=== PATIENT | female | born 1960 | race Caucasian/White ===

== ENCOUNTER 2017-06-17 08:46 | Day surgery (SDC) | payer OTHER ==
[~2017-06-17] VITALS: Ht 154.9 cm; Wt 86.2 kg
[~2017-06-17 08:46] MED LIST: ALBU90OI6 INH; AMOCLA875 PO; ASCO500 PO; ASPI325EC PO; ASPI81EC PO; ATOR40TA PO; BENAML20/5 PO; CALCAVITD PO; COMBIVENT RESPIM4 GM; CYAN500 PO; CYCL10 PO; DICL25ER PO; ELMIRON; FAMO40 PO; FLAX PO; GLUCOSAMINE &1 EACH PO; HYDACE5 PO; HYDACE7.5L PO; HYDHCL25 PO; LEVSOD150 PO; LEVSOD75; LEVSOD75 PO; METF500 PO; METF500C; METPRE4DP PO; MORP30 PO; MULVITMIND PO; NAPR500 PO; NITR.6SL SL; OMEG1CAP30 PO; OMEP20ER PO; PANT40 PO; PARO10 PO; PARO20 PO; SELENIUM200 MC1 PO; SUDAFED PO; TRAM50 PO; VITAMIN D-32000 UNIT PO; XARELTO10 MG PO; ZOLP5 PO; Zithromax250 MG PO; [UNRECOGNIZED DRUG - OTHER]
[2017-07-21] MEDS ORDERED: DICL25ER PO (13:18)
[2017-07-21] MEDS ORDERED: COMBIVENT RESPIM4 GM INH (13:19)
[2017-07-21] MEDS ORDERED: PROBIOTIC1 EAC4 PO (13:19)
[2017-07-21] MEDS ORDERED: FOLI400 PO (13:20)
[2017-07-21] MEDS ORDERED: VITAMIN B122500 MC1 PO (13:21)
[2017-07-21] MEDS ORDERED: FISH OIL + D31 EACH PO (13:24)
[2017-07-21] MEDS ORDERED: IRON150C PO (13:25)
== END 2017-06-17 11:32 | disposition home or self-care (01) ==
LOC: ORSCSDS 08:46
PROVIDERS: Internal Medicine Gastroenterology
PROC: 0DB58ZX Excision of Esophagus, Via Natural or Artificial Opening Endoscopic, Diagnostic (ICD-10-PCS; principal; 2017-06-17 10:00)
PROC: 0DB68ZX Excision of Stomach, Via Natural or Artificial Opening Endoscopic, Diagnostic (ICD-10-PCS; principal; 2017-06-17 10:00)
DX: R11.2 Nausea with vomiting, unspecified (principal); R93.3 Abnormal findings on diagnostic imaging of other parts of digestive tract; R13.14 Dysphagia, pharyngoesophageal phase; R14.2 Eructation; K21.9 Gastro-esophageal reflux disease without esophagitis; E03.9 Hypothyroidism, unspecified; E66.01 Morbid (severe) obesity due to excess calories; Z68.38 Body mass index [BMI] 38.0-38.9, adult; J45.909 Unspecified asthma, uncomplicated; Z79.899 Other long term (current) drug therapy
CPT/HCPCS: 88305; 88342; C1726; J7120

== ENCOUNTER 2017-07-17 10:58 | Day surgery (SDC) | payer OTHER ==
[~2017-07-17] VITALS: Ht 154.9 cm; Wt 83.0 kg
[2017-07-21] MEDS ORDERED: DICL25ER PO (13:18)
[2017-07-21] MEDS ORDERED: PROBIOTIC1 EAC4 PO (13:19)
[2017-07-21] MEDS ORDERED: COMBIVENT RESPIM4 GM INH (13:19)
[2017-07-21] MEDS ORDERED: FOLI400 PO (13:20)
[2017-07-21] MEDS ORDERED: VITAMIN B122500 MC1 PO (13:21)
[2017-07-21] MEDS ORDERED: FISH OIL + D31 EACH PO (13:24)
[2017-07-21] MEDS ORDERED: IRON150C PO (13:25)
== END 2017-07-17 13:55 | disposition home or self-care (01) ==
LOC: ORSCSDS 10:58
PROVIDERS: Internal Medicine Gastroenterology
PROC: 0D768ZZ Dilation of Stomach, Via Natural or Artificial Opening Endoscopic (ICD-10-PCS; principal; 2017-07-17 12:15)
DX: R11.2 Nausea with vomiting, unspecified (principal); K25.9 Gastric ulcer, unspecified as acute or chronic, without hemorrhage or perforation; R13.10 Dysphagia, unspecified; Z98.84 Bariatric surgery status; Z95.0 Presence of cardiac pacemaker; I10 Essential (primary) hypertension; G47.33 Obstructive sleep apnea (adult) (pediatric); E78.00 Pure hypercholesterolemia, unspecified; E03.9 Hypothyroidism, unspecified; Z79.899 Other long term (current) drug therapy
CPT/HCPCS: 82947; C1726; J0330; J1885; J7120

== ENCOUNTER 2017-07-22 14:32 | Day surgery (SDC) | payer OTHER ==
[~2017-07-22] VITALS: Ht 152.4 cm; Wt 84.4 kg
[~2017-07-22 14:32] MED LIST changes: +COMBIVENT RESPIM4 GM INH; +FISH OIL + D31 EACH PO; +FOLI400 PO; +IRON150C PO; +PROBIOTIC1 EAC4 PO; +VITAMIN B122500 MC1 PO
== END 2017-07-22 22:51 | disposition home or self-care (01) ==
LOC: ORSCMMR 14:32
PROVIDERS: Internal Medicine Gastroenterology
PROC: 0D768ZZ Dilation of Stomach, Via Natural or Artificial Opening Endoscopic (ICD-10-PCS; principal; 2017-07-22 16:00)
DX: K22.2 Esophageal obstruction (principal); Z95.0 Presence of cardiac pacemaker; Z98.84 Bariatric surgery status; Z79.899 Other long term (current) drug therapy
CPT/HCPCS: C1726; J7120

== ENCOUNTER 2017-07-25 13:31 | Day surgery (SDC) | payer OTHER ==
[~2017-07-25] VITALS: Ht 154.9 cm; Wt 83.1 kg
== END 2017-07-25 15:06 | disposition home or self-care (01) ==
LOC: ORSCSDS 13:31
PROVIDERS: Internal Medicine Gastroenterology
PROC: 0D758ZZ Dilation of Esophagus, Via Natural or Artificial Opening Endoscopic (ICD-10-PCS; principal; 2017-07-25 15:00)
DX: K22.2 Esophageal obstruction (principal); K28.9 Gastrojejunal ulcer, unspecified as acute or chronic, without hemorrhage or perforation; K21.9 Gastro-esophageal reflux disease without esophagitis; G47.30 Sleep apnea, unspecified; G47.33 Obstructive sleep apnea (adult) (pediatric); Z98.84 Bariatric surgery status; Z95.0 Presence of cardiac pacemaker; E03.9 Hypothyroidism, unspecified; E66.01 Morbid (severe) obesity due to excess calories; Z68.35 Body mass index [BMI] 35.0-35.9, adult; Z79.899 Other long term (current) drug therapy
CPT/HCPCS: C1726; J2250

== ENCOUNTER 2017-07-29 07:55 | Day surgery (SDC) | payer OTHER ==
[~2017-07-29] VITALS: Ht 154.9 cm; Wt 80.5 kg
[2017-07-29] MEDS ORDERED: [UNRECOGNIZED DRUG - OTHER] (08:58)
== END 2017-07-29 11:10 | disposition home or self-care (01) ==
LOC: ORSCSDS 07:55
PROVIDERS: Internal Medicine Gastroenterology
PROC: 0D778ZZ Dilation of Stomach, Pylorus, Via Natural or Artificial Opening Endoscopic (ICD-10-PCS; principal; 2017-07-29 09:15)
DX: K22.2 Esophageal obstruction (principal); K25.9 Gastric ulcer, unspecified as acute or chronic, without hemorrhage or perforation; G47.33 Obstructive sleep apnea (adult) (pediatric); E03.9 Hypothyroidism, unspecified; J45.909 Unspecified asthma, uncomplicated; E11.9 Type 2 diabetes mellitus without complications; I49.5 Sick sinus syndrome; Z95.0 Presence of cardiac pacemaker; Z79.899 Other long term (current) drug therapy
CPT/HCPCS: C1726; J7120

== ENCOUNTER 2017-08-01 09:59 | Day surgery (SDC) | payer OTHER ==
[~2017-08-01 09:59] MED LIST changes: +[UNRECOGNIZED DRUG - OTHER]
== END 2017-08-02 00:30 | disposition home or self-care (01) ==
LOC: ORSCMMR 09:59
PROVIDERS: Internal Medicine Gastroenterology
PROC: 0DC68ZZ Extirpation of Matter from Stomach, Via Natural or Artificial Opening Endoscopic (ICD-10-PCS; principal; 2017-08-01 11:45)
PROC: 0D778ZZ Dilation of Stomach, Pylorus, Via Natural or Artificial Opening Endoscopic (ICD-10-PCS; principal; 2017-08-01 11:45)
DX: K22.2 Esophageal obstruction (principal); T18.2XXA Foreign body in stomach, initial encounter; K21.9 Gastro-esophageal reflux disease without esophagitis; Z98.84 Bariatric surgery status; E03.9 Hypothyroidism, unspecified; G47.33 Obstructive sleep apnea (adult) (pediatric); E66.01 Morbid (severe) obesity due to excess calories; Z68.36 Body mass index [BMI] 36.0-36.9, adult; Z95.0 Presence of cardiac pacemaker; Z79.899 Other long term (current) drug therapy
CPT/HCPCS: C1726; J7120

== ENCOUNTER 2017-08-05 14:39 | Day surgery (SDC) | payer OTHER | END 2017-08-05 22:44 | disposition home or self-care (01) | LOC: ORSCMMR 14:39 | PROVIDERS: Internal Medicine Gastroenterology | PROC: 0D758ZZ Dilation of Esophagus, Via Natural or Artificial Opening Endoscopic (ICD-10-PCS; principal; 2017-08-05 16:00) | DX: K22.2 Esophageal obstruction (principal); Z98.84 Bariatric surgery status; G47.33 Obstructive sleep apnea (adult) (pediatric); E11.9 Type 2 diabetes mellitus without complications; E03.9 Hypothyroidism, unspecified; Z95.0 Presence of cardiac pacemaker; I49.5 Sick sinus syndrome; Z79.899 Other long term (current) drug therapy | CPT/HCPCS: C1726; J2250; J7120 ==

== ENCOUNTER 2017-08-12 09:56 | Day surgery (SDC) | payer OTHER ==
[~2017-08-12] VITALS: Ht 154.9 cm; Wt 82.3 kg
== END 2017-08-12 12:18 | disposition home or self-care (01) ==
LOC: ORSCSDS 09:56
PROVIDERS: Internal Medicine Gastroenterology
PROC: 0D758ZZ Dilation of Esophagus, Via Natural or Artificial Opening Endoscopic (ICD-10-PCS; principal; 2017-08-12 11:00)
DX: K22.2 Esophageal obstruction (principal); G47.33 Obstructive sleep apnea (adult) (pediatric); E11.9 Type 2 diabetes mellitus without complications; E03.9 Hypothyroidism, unspecified; I49.5 Sick sinus syndrome; Z95.0 Presence of cardiac pacemaker; Z98.84 Bariatric surgery status; E66.01 Morbid (severe) obesity due to excess calories; Z68.35 Body mass index [BMI] 35.0-35.9, adult; Z79.899 Other long term (current) drug therapy
CPT/HCPCS: C1726; J7120

== ENCOUNTER 2017-08-19 10:46 | Inpatient (IN) | payer OTHER ==
[~2017-08-19] VITALS: Ht 154.9 cm; Wt 84.4 kg
== END 2017-08-19 18:22 | disposition short-term general hospital (02) | DRG 394 ==
LOC: ORSCSDS 10:46 → SURS 14:47 → ORSCSDS 14:48 → SURS 18:22
PROVIDERS: Internal Medicine Gastroenterology
PROC: 0D748DZ Dilation of Esophagogastric Junction with Intraluminal Device, Via Natural or Artificial Opening Endoscopic (ICD-10-PCS; principal; 2017-08-19 12:00)
DX: K91.89 Other postprocedural complications and disorders of digestive system (principal); K91.71 Accidental puncture and laceration of a digestive system organ or structure during a digestive system procedure; K22.2 Esophageal obstruction; E66.01 Morbid (severe) obesity due to excess calories; G47.33 Obstructive sleep apnea (adult) (pediatric); K21.9 Gastro-esophageal reflux disease without esophagitis; E03.9 Hypothyroidism, unspecified; Z98.84 Bariatric surgery status; K28.9 Gastrojejunal ulcer, unspecified as acute or chronic, without hemorrhage or perforation; K95.89 Other complications of other bariatric procedure; Y83.2 Surgical operation with anastomosis, bypass or graft as the cause of abnormal reaction of the patient, or of later complication, without mention of misadventure at the time of the procedure; Y65.8 Other specified misadventures during surgical and medical care; Y92.234 Operating room of hospital as the place of occurrence of the external cause; Z68.35 Body mass index [BMI] 35.0-35.9, adult
CPT/HCPCS: 71046; 74018; C1726; C9113; J0330; J0692; J1980; J2060; J2405; J3010; J7120

== ENCOUNTER → 2017-10-21 | Outpatient (CLI) | payer OTHER | END | disposition home or self-care (01) | LOC: LAB 15:58 → LAB SHORT 15:58 | PROVIDERS: Obstetrics & Gynecology Gynecology | DX: Z12.4 Encounter for screening for malignant neoplasm of cervix (principal) | CPT/HCPCS: 87624; G0123 ==

== ENCOUNTER → 2017-11-18 | Outpatient (CLI) | payer OTHER ==
[2017-11-18 10:06] LABS: Protein, Urine Quantitative <5.0 mg/dL (0.0-11.9)
== END | disposition home or self-care (01) ==
LOC: OLS 05:30 → LAB SHORT 05:30
PROVIDERS: Family Medicine
DX: N28.9 Disorder of kidney and ureter, unspecified (principal)
CPT/HCPCS: 81050; 84156

== ENCOUNTER → 2019-03-18 | Outpatient (CLI) | payer OTHER ==
[2019-03-22 13:07] LABS: HPV 16 Negative (Negative); HPV 18 Negative (Negative); HPV OTHER HR TYPES Negative (Negative)
== END | disposition home or self-care (01) ==
LOC: LAB 15:01 → LAB SHORT 15:01
PROVIDERS: Obstetrics & Gynecology Gynecology
DX: Z12.4 Encounter for screening for malignant neoplasm of cervix (principal)
CPT/HCPCS: 87624; G0123

== ENCOUNTER → 2019-06-28 | Outpatient (CLI) | payer OTHER ==
[2019-06-28 10:45] LABS: Phosphorus, Urine 35.6 mg/dL (20.0-60.0)
[2019-06-28 12:00] LABS: Calcium, Urine 15.2 mg/dL (< 17.5)
== END | disposition home or self-care (01) ==
LOC: OLS 05:15 → LAB SHORT 05:15 → LAB FUT 05-19 13:40
PROVIDERS: Internal Medicine
DX: N18.3 Chronic kidney disease, stage 3 (moderate) (principal); E83.39 Other disorders of phosphorus metabolism
CPT/HCPCS: 81050; 82340; 83945; 84105

== ENCOUNTER 2021-07-12 08:34 | Day surgery (SDC) | payer OTHER ==
[~2021-07-12] VITALS: Ht 154.9 cm; Wt 115.0 kg
[~2021-07-12 08:34] MED LIST changes: +ALL DAY ALLERGY PO; +EUTHYROX125 MCG PO; +FURO20 PO; +KRILL OIL500 MG PO; +MAGNESIUM PO; +PRENATE ENHANC1 EACH PO; +TEMA15 PO; +VITAMIN D325 MC3 PO
--- NOTE | 2021-07-12 10:16 | NUR ---
History, Chart, Medications and Allergies reviewed before start of procedure.Pre-Op teaching done. Pt verbalizes understanding.
--- NOTE | 2021-07-12 15:09 | NUR ---
PT ARRIVED TO UNIT FROM PACU TRANSFERRED PT FROM [facility] TO BED USING SLIDER SHEET. PT REPORTS "PRESSURE" TO ABDOMEN. PLACED BLANKETS AND TURNED UP THERMOSTAT FOR COMFORT. ORIENTED TO USE OF CALL LIGHT. LAB IN TO DRAW AT THIS TIME.
--- NOTE | 2021-07-12 16:21 | NUR ---
SUMMARY PT STABLE. HAS DENIED NEED FOR PAIN MEDS THUS FAR, RATING PAIN 4/10 STATING THAT IS TOLERABLE. VSS. EATING JELLO. AMBULATED TO RESTROOM W/FWW AND VOIDED 150 ML URINE. SMALL AMOUNT VAG BLEEDING NOTED. PT HAS BEEN ORIENTED TO ROOM. CALL LIGHT IN REACH.
--- NOTE | 2021-07-12 17:09 | NUR ---
REPORT GIVEN TO JOSEFINA Case RN. TURNING OVER CARE.
--- NOTE | 2021-07-12 18:06 | NUR ---
1709 LYING IN BED WITH EYES CLOSED PT REPORTS FEELING BETER AFTER PAIN MEDS
--- NOTE | 2021-07-12 18:07 | NUR ---
PT REPORTS PAIN IS ADEQUATELY CONTROLLED AND SHE IS GOING TO TAKE A NAP. N VAGINAL DRAINAGE, ABD INCISIONS DRY AND INTACT WITH SCANT BRUIING PRESENT AT SITES
--- NOTE | 2021-07-13 04:23 | NUR ---
SHIFT SUMMARY JOSHUA IS POD#0 WITH ROBOTIC LAP TOTAL HYSTERECTOMY. SCANT BLOODY VAG DISCHARGE NOTED. PT PASSING GAS, AND HAD A BM. PT IS ABLE TO AMBULATE WITH SBA AND WALKER TO THE BATHROOM, VOIDING AT LEAST 500ML THIS EVENING. REPORTED PAIN TO HER RIGHT SHOULDER, WHICH IMPROVED WITH TYLENOL AND POSITION CHANGES. ELEVATED SYSTOLIC BLOOD PRESSURE, REPORTED TO DR. PAGE. DR. PAGE ORDERED CONSULT WITH HOSPITALIST. DR. ERIC AND DR. MOURA AT BEDSIDE, WITH ORDERS FOR PO HYDRALAZINE 10MG PRN SBP >140. GAVE ONE DOSE, WITH GOOD RESULTS. PT SLEPT FOR MUCH OF THE SHIFT. IV IN LEFT HAND, AND RIGHT AC. FLUSH WELL. ROOM AIR. MOTIVATED TO GO HOME TODAY.
[2021-07-13 04:43] LABS: BASOPHILS ABSOLUTE AUTO 0.02 K/mm3 (0.00-0.23); BASOPHILS PERCENT AUTO 0 % (0-2); EOSINOPHILS ABSOLUTE AUTO 0.01 K/mm3 (0.00-0.68); EOSINOPHILS PERCENT AUTO 0 % (0-6); Hematocrit 43.5 % (33.0-51.0); Hemoglobin 13.9 g/dL (11.5-16.0); IMMATURE GRAN ABSOLUTE AUTO 0.06 K/mm3 (0.00-0.10); IMMATURE GRAN PERCENT AUTO 0 % (0-1); LYMPHOCYTES ABSOLUTE AUTO 1.49 K/mm3 (0.84-5.20); LYMPHOCYTES PERCENT AUTO 10 % (21-46); MONOCYTES ABSOLUTE AUTO 1.03 K/mm3 (0.16-1.47); MONOCYTES PERCENT AUTO 7 % (4-13); Mean Corpuscular HGB 26.8 pg (26.0-34.0); Mean Corpuscular Volume 84 fL (80-100); Mean Platelet Volume 9.5 fL (9.1-12.4); NEUTROPHILS ABSOLUTE AUTO 11.82 K/mm3 (1.96-9.15); NEUTROPHILS PERCENT AUTO 82 % (41-73); Platelet Count 255 K/mm3 (150-400); RDW Coefficient Variation 15.2 % (11.7-14.2); RDW Standard Deviation 46.4 fL (35.1-46.3); Red Blood Cell Count 5.19 M/mm3 (3.80-5.20); White Blood Cell Count 14.43 K/mm3 (4.00-11.30)
[2021-07-13 05:13] LABS: Calcium, Blood 9.9 mg/dL (8.5-10.1); Creatinine, Blood 1.19 mg/dL (0.40-1.00); Potassium, Blood 4.1 mmol/L (3.5-5.5)
[2021-07-13] MEDS ORDERED: DOCU100 PO (09:40)
--- NOTE | 2021-07-13 10:10 | NUR ---
DISCHARGING REVIEWED DC PAPERWORK W/PT; VERBALIZED UNDERSTANDING. DC'D IVS, CATHETERS INTACT. PT GETTING DRESSED AND SPOUSE ON THE WAY TO [facility].
--- NOTE | 2021-07-13 10:25 | NUR ---
DISCHARGED PT LEFT UNIT IN TO RIDE WAITING OUTSIDE.
== END 2021-07-13 10:20 | disposition home or self-care (01) ==
LOC: ORD 08:34 → ORSCMMR 08:35 → SURS 14:51 → ORD 07-13 10:20
PROVIDERS: Obstetrics & Gynecology
PROC: 0UT24ZZ Resection of Bilateral Ovaries, Percutaneous Endoscopic Approach (ICD-10-PCS; 2021-07-12)
PROC: 0UT74ZZ Resection of Bilateral Fallopian Tubes, Percutaneous Endoscopic Approach (ICD-10-PCS; 2021-07-12)
PROC: 0UT94ZZ Resection of Uterus, Percutaneous Endoscopic Approach (ICD-10-PCS; principal; 2021-07-12 10:00)
PROC: 0UTC4ZZ Resection of Cervix, Percutaneous Endoscopic Approach (ICD-10-PCS; 2021-07-12 10:00)
DX: D25.0 Submucous leiomyoma of uterus (principal); R10.2 Pelvic and perineal pain; N95.0 Postmenopausal bleeding; G89.18 Other acute postprocedural pain; U07.1 COVID-19; I12.9 Hypertensive chronic kidney disease with stage 1 through stage 4 chronic kidney disease, or unspecified chronic kidney disease; N18.30 Chronic kidney disease, stage 3 unspecified; Q60.0 Renal agenesis, unilateral; E03.9 Hypothyroidism, unspecified; E78.5 Hyperlipidemia, unspecified; E66.01 Morbid (severe) obesity due to excess calories; Z98.84 Bariatric surgery status; Z95.0 Presence of cardiac pacemaker; Z68.42 Body mass index [BMI] 45.0-49.9, adult
CPT/HCPCS: 36415; 80048; 82947; 85025; A9270; J0694; J1100; J1885; J2250; J2370; J2405; J2704; J3010; J7120

== ENCOUNTER 2021-11-29 11:43 | Day surgery (SDC) | payer OTHER ==
[2021-11-26 10:40] LABS: Bun/Creatinine Ratio 18.9 (12.0-20.0); Calcium, Blood 10.3 mg/dL (8.5-10.1); Creatinine, Blood 1.27 mg/dL (0.40-1.00); Potassium, Blood 3.8 mmol/L (3.5-5.5)
[2021-11-26 10:53] LABS: BASOPHILS ABSOLUTE AUTO 0.06 K/mm3 (0.00-0.23); BASOPHILS PERCENT AUTO 1 % (0-2); EOSINOPHILS ABSOLUTE AUTO 0.14 K/mm3 (0.00-0.68); EOSINOPHILS PERCENT AUTO 2 % (0-6); Hematocrit 47.7 % (33.0-51.0); Hemoglobin 14.9 g/dL (11.5-16.0); IMMATURE GRAN ABSOLUTE AUTO 0.03 K/mm3 (0.00-0.10); IMMATURE GRAN PERCENT AUTO 0 % (0-1); LYMPHOCYTES ABSOLUTE AUTO 2.16 K/mm3 (0.84-5.20); LYMPHOCYTES PERCENT AUTO 31 % (21-46); MONOCYTES ABSOLUTE AUTO 0.56 K/mm3 (0.16-1.47); MONOCYTES PERCENT AUTO 8 % (4-13); Mean Corpuscular HGB 26.8 pg (26.0-34.0); Mean Corpuscular HGB Conc 31.2 g/dL (31.5-36.5); Mean Corpuscular Volume 86 fL (80-100); Mean Platelet Volume 9.9 fL (9.1-12.4); NEUTROPHILS ABSOLUTE AUTO 4.07 K/mm3 (1.96-9.15); NEUTROPHILS PERCENT AUTO 58 % (41-73); Platelet Count 255 K/mm3 (150-400); RDW Coefficient Variation 15.2 % (11.7-14.2); RDW Standard Deviation 47.6 fL (35.1-46.3); Red Blood Cell Count 5.55 M/mm3 (3.80-5.20); White Blood Cell Count 7.02 K/mm3 (4.00-11.30)
[~2021-11-29] VITALS: Ht 154.9 cm; Wt 112.9 kg
[~2021-11-29 11:43] MED LIST changes: +DOCU100 PO; +TRIA50
--- NOTE | 2021-11-29 17:07 | NUR ---
2235-PT UP TO CHAIR W/O NAUSEA. STATES PAIN IS A 3-4/10. ICE APPLIED TO VULVA.TAKING APPLE JUICE W/O NAUSEA. NO BLEEDING EVIDENT FROM OPERATIVE SITE. IV DC'D WITH CATH INTACT. PT VERBALIZES A GOOD UNDERSTANDING OF DC CARE
== END 2021-11-29 22:34 | disposition home or self-care (01) ==
LOC: ORSCMMR 11:43
PROVIDERS: Obstetrics & Gynecology
PROC: 0UBMXZZ Excision of Vulva, External Approach (ICD-10-PCS; principal; 2021-11-29 15:00)
DX: N90.60 Unspecified hypertrophy of vulva (principal); E03.9 Hypothyroidism, unspecified; E66.01 Morbid (severe) obesity due to excess calories; Z68.42 Body mass index [BMI] 45.0-49.9, adult; Z79.899 Other long term (current) drug therapy
CPT/HCPCS: 36415; 80048; 85025; 86850; 86900; 86901; 88305; J1100; J2250; J2405; J2704; J3010; J7120

== ENCOUNTER 2023-12-15 02:28 | Day surgery (SDC) | payer OTHER, BC | END 2023-12-15 23:37 | disposition home or self-care (01) | LOC: WOUND 02:28 | DX: T81.31XA Disruption of external operation (surgical) wound, not elsewhere classified, initial encounter (principal); L98.422 Non-pressure chronic ulcer of back with fat layer exposed; N18.30 Chronic kidney disease, stage 3 unspecified; I48.19 Other persistent atrial fibrillation; E03.9 Hypothyroidism, unspecified; J44.9 Chronic obstructive pulmonary disease, unspecified; I69.953 Hemiplegia and hemiparesis following unspecified cerebrovascular disease affecting right non-dominant side | CPT/HCPCS: G0463 ==

== ENCOUNTER 2023-12-26 01:41 | Day surgery (SDC) | payer OTHER | END 2023-12-26 22:44 | disposition home or self-care (01) | LOC: WOUND 01:41 | DX: L05.91 Pilonidal cyst without abscess (principal); T81.31XA Disruption of external operation (surgical) wound, not elsewhere classified, initial encounter; N18.30 Chronic kidney disease, stage 3 unspecified; E03.9 Hypothyroidism, unspecified; I48.19 Other persistent atrial fibrillation; J44.9 Chronic obstructive pulmonary disease, unspecified | CPT/HCPCS: G0463 ==

== ENCOUNTER 2025-02-07 01:25 | Emergency (ER) | payer OTHER ==
[~2025-02-07] VITALS: Ht 154.9 cm; Wt 99.8 kg
[2025-02-07] MEDS ORDERED: ACET500 PO (03:34)
[2025-02-07] MEDS ORDERED: GABA300 PO (03:34)
[2025-02-07] MEDS ORDERED: LIDO700A20 TOP (03:34)
[2025-02-07] MEDS ORDERED: Lidocaine 4% 1 Patch TOP ONE (03:35)
[2025-02-07 03:45] VITALS: BP 154/75
== END 2025-02-07 03:46 | disposition home or self-care (01) ==
LOC: ER 01:25
DX: M54.31 Sciatica, right side (principal); E03.9 Hypothyroidism, unspecified; Z88.5 Allergy status to narcotic agent; Z88.1 Allergy status to other antibiotic agents; Z91.040 Latex allergy status; Z79.899 Other long term (current) drug therapy; Z79.890 Hormone replacement therapy
CPT/HCPCS: 99283; A9270